=== PATIENT | female | born 1965 | race Caucasian/White ===

== ENCOUNTER 2019-10-10 06:29 | Inpatient (IN) ==
[2019-10-10] MEDS ORDERED: MORPHINE 4 MG/1 ML VIAL IV PRN (08:52)
[2019-10-10] MEDS ORDERED: ONDANSETRON 4 MG/2 ML VIAL IV PRN (08:52)
[2019-10-10] MEDS ORDERED: ACETAMINOPHEN 325 MG TABLET PO PRN (08:52)
[2019-10-10] MEDS ORDERED: LACTULOSE 20 GM/30 ML UDCUP PO PRN (08:52)
[2019-10-10] MEDS ORDERED: GLUCAGON 1 MG VIAL IM PRN (08:58)
[2019-10-10] MEDS ORDERED: DEXTROSE 10% 250 ML BAG IV PRN (08:58)
[2019-10-10] MEDS: PANTOPRAZOLE 40 MG VIAL IV SCH (09:00)
[2019-10-10] MEDS: ENOXAPARIN 40 MG/0.4 ML SYRINGE SUBCUT SCH (09:00)
[2019-10-10] MEDS: SODIUM CHLORIDE 0.45% 1,000 ML IV SCH ×2 (09:00→18:15)
[2019-10-10 09:20] LABS: ABG Base Excess -6.3 MMOL/L (-2.5-2.5); ABG HCO3 19.3 MMOL/L (20-26); ABG Oxygen Saturation 99.7 % (95-100); ABG PCO2 38.1 MM HG (35-48); ABG PH 7.315 (7.35-7.45); ABG TCO2 17.7 MMOL/L (23-27); Allen Test Positive; Pt O2 Delivery Device Ventilator
[2019-10-10 10:31] LABS: PT Patient Result 10.7 SECS (9.8-11.9)
[2019-10-10 10:33] LABS: Alanine Aminotransferase 19 U/L (13-56); Albumin 3.3 G/DL (3.4-5.0); Alkaline Phosphatase 90 U/L (45-117); Aspartate Amino Transferase 16 U/L (0-37); Bilirubin,Total < 0.39 MG/DL (0.2-1.0); Blood Urea Nitrogen 12 MG/DL (7-18); Calcium 8.9 MG/DL (8.5-10.1); Estimated Glom Filtration Rate 116 ML/MIN; Glucose 113 MG/DL (74-106); Osmolality,Calculated 273.8 MOS/KG (273-304); Total Protein 6.5 G/DL (6.4-8.3)
[2019-10-10 10:38] LABS: Ferritin 12.6 ng/ml (8-252)
[2019-10-10] MEDS ORDERED: SODIUM CHLORIDE 0.9% 1,000 ML IV ONE (10:52)
[2019-10-10] MEDS: PIPERACILLIN/TAZOBACTAM 3,375 MG in SODIUM CHLORIDE 0.9% 100 ML IV SCH ×2 (10:59→18:39)
[2019-10-10 11:01] LABS: Free T4 (Free Thyroxine) 0.79 NG/DL (0.76-1.46); Thyroid Stimulating Hormone 0.561 uIU/ml (0.358-3.74)
[2019-10-10] MEDS: INSULIN LISPRO 100 UNIT/ML SUBCUT SCH ×2 (12:47→17:40)
[2019-10-10] MEDS: MIDAZOLAM 100 MG in SODIUM CHLORIDE 0.9% 80 ML IV PRN (13:35)
[2019-10-11] MEDS: INSULIN LISPRO 100 UNIT/ML SUBCUT SCH ×4 (01:48→17:03)
[2019-10-11] MEDS: PIPERACILLIN/TAZOBACTAM 3,375 MG in SODIUM CHLORIDE 0.9% 100 ML IV SCH ×3 (02:23→22:45)
[2019-10-11] MEDS ORDERED: SODIUM CHLORIDE 0.9% 100 ML IV ONE (02:37)
[2019-10-11] MEDS ORDERED: SODIUM CHLORIDE 0.9% 250 ML IV ONE (03:00)
[2019-10-11] MEDS: MIDAZOLAM 100 MG in SODIUM CHLORIDE 0.9% 80 ML IV PRN (03:45)
[2019-10-11] MEDS: SODIUM CHLORIDE 0.45% 1,000 ML IV SCH (04:15)
[2019-10-11 04:46] LABS: Allen Test Positive; Pt O2 Delivery Device Ventilator
[2019-10-11 04:47] LABS: ABG Base Excess -1.9 MMOL/L (-2.5-2.5); ABG HCO3 22.4 MMOL/L (20-26); ABG Oxygen Saturation 67.8 % (95-100); ABG PCO2 35.6 MM HG (35-48); ABG PH 7.407 (7.35-7.45); ABG TCO2 20.5 MMOL/L (23-27)
[2019-10-11 04:48] LABS: ABG PO2 37.8 MM HG (80-95)
[2019-10-11 04:54] LABS: Basophils % 0.2 % (0.0-0.8); Eosinophils # 0.1 10*3/uL (0.0-0.87); Eosinophils % 0.7 % (0.00-10.9); Hematocrit 33.7 VOL% (35.7-47.0); Hemoglobin 10.1 GM/DL (12.0-16.0); Immature Granulocytes % 0.4 %; Immature Granulocytes Absolute 0.04 #; Lymphocytes # 2.2 10*3/uL (1.4-4.0); Lymphocytes % 21.4 % (21.3-54.2); Mean Corpuscular Volume 93.4 FL (87-102); Monocytes % 6.4 % (1.7-12.7); Neutrophils % 70.9 % (38.7-73.9); Platelet Count 366 T/CUMM (130-400); Red Blood Count 3.61 MC/CUMM (3.8-5.5); Red Cell Distribution Width 16.9 % (9.3-17.3); White Blood Count 10.1 T/CUMM (4-12)
[2019-10-11 05:16] LABS: Prealbumin 33.1 MG/DL (20-40)
[2019-10-11 05:55] LABS: ABG Base Excess -2.4 MMOL/L (-2.5-2.5); ABG HCO3 22.4 MMOL/L (20-26); ABG Oxygen Saturation 99.5 % (95-100); ABG PCO2 35.3 MM HG (35-48); ABG PH 7.399 (7.35-7.45); ABG TCO2 19.7 MMOL/L (23-27)
[2019-10-11] MEDS ORDERED: POTASSIUM CHLORIDE RIDER 10 MEQ in PREMIX 1 EACH IV PRN (07:04)
[2019-10-11] MEDS ORDERED: MAGNESIUM SULF RIDER 4 GM in PREMIX 1 EACH IV PRN (07:04)
[2019-10-11] MEDS ORDERED: POTASSIUM CHLORIDE RIDER 20 MEQ in PREMIX 1 EACH IV PRN (07:04)
[2019-10-11] MEDS ORDERED: MAGNESIUM SULF RIDER 2 GM in PREMIX 1 EACH IV PRN (07:04)
[2019-10-11] MEDS: SODIUM CHLORIDE 0.9% 1,000 ML IV SCH ×3 (07:32→21:52)
[2019-10-11 09:05] LABS: Calcium 8.7 MG/DL (8.5-10.1); Osmolality,Calculated 286.8 MOS/KG (273-304)
[2019-10-11] MEDS: ENOXAPARIN 40 MG/0.4 ML SYRINGE SUBCUT SCH (09:55)
[2019-10-11] MEDS: PANTOPRAZOLE 40 MG VIAL IV SCH (09:55)
[2019-10-11] MEDS ORDERED: FLUTICASONE/SALMETEROL 500-50 DISKUS 14 DOSE INH PRN (13:04)
[2019-10-11] MEDS ORDERED: LORazepam 2 MG/1 ML VIAL IV PRN (13:06)
[2019-10-11] MEDS: BACLOFEN 10 MG TABLET PO SCH ×2 (16:30→23:36)
[2019-10-11] MEDS: ARIPiprazole 10 MG TABLET PO SCH (16:30)
[2019-10-11] MEDS: GABAPENTIN 300 MG CAPSULE PO SCH (23:35)
[2019-10-12] MEDS: INSULIN LISPRO 100 UNIT/ML SUBCUT SCH ×5 (02:08→23:28)
[2019-10-12] MEDS: SODIUM CHLORIDE 0.9% 1,000 ML IV SCH (03:17)
[2019-10-12] MEDS: PIPERACILLIN/TAZOBACTAM 3,375 MG in SODIUM CHLORIDE 0.9% 100 ML IV SCH (03:39)
[2019-10-12 06:37] LABS: Basophils # 0.1 10*3/uL (0.0-0.2); Basophils % 0.4 % (0.0-0.8); Eosinophils # 0.4 10*3/uL (0.0-0.87); Eosinophils % 3.3 % (0.00-10.9); Hematocrit 34.5 VOL% (35.7-47.0); Hemoglobin 10.7 GM/DL (12.0-16.0); Immature Granulocytes % 0.3 %; Immature Granulocytes Absolute 0.03 #; Lymphocytes # 3.1 10*3/uL (1.4-4.0); Mean Corpuscular Volume 89.6 FL (87-102); Mean Platelet Volume 9.3 FL (9.6-12.0); Monocytes % 4.7 % (1.7-12.7); Neutrophils % 64.3 % (38.7-73.9); Platelet Count 402 T/CUMM (130-400); Red Blood Count 3.85 MC/CUMM (3.8-5.5); Red Cell Distribution Width 16.3 % (9.3-17.3); White Blood Count 11.6 T/CUMM (4-12)
[2019-10-12 07:06] LABS: Calcium 8.7 MG/DL (8.5-10.1); Osmolality,Calculated 277.3 MOS/KG (273-304)
[2019-10-12] MEDS: ENOXAPARIN 40 MG/0.4 ML SYRINGE SUBCUT SCH (08:50)
[2019-10-12] MEDS: LORATADINE 10 MG TABLET PO SCH (08:50)
[2019-10-12] MEDS: ARIPiprazole 10 MG TABLET PO SCH (08:50)
[2019-10-12] MEDS: BACLOFEN 10 MG TABLET PO SCH ×3 (08:50→20:57)
[2019-10-12] MEDS ORDERED: PANTOPRAZOLE 40 MG TABLET PO SCH (09:00)
[2019-10-12] MEDS: amLODIPine 5 MG TABLET PO SCH (11:50)
[2019-10-12] MEDS: NICOTINE 21 MG/24 HR PATCH TRANSDERM SCH (17:26)
[2019-10-12] MEDS: GABAPENTIN 300 MG CAPSULE PO SCH (20:56)
[2019-10-12] MEDS: BENZTROPINE 0.5 MG TABLET PO SCH (20:57)
[2019-10-12] MEDS: DIVALPROEX 500 MG TABLET PO SCH (20:57)
[2019-10-12] MEDS: PANTOPRAZOLE 40 MG TABLET PO SCH (20:57)
[2019-10-12] MEDS: busPIRone 15 MG TABLET PO SCH (20:57)
[2019-10-13] MEDS ORDERED: DEXTROSE 10% 250 ML BAG IV PRN (07:29)
[2019-10-13] MEDS ORDERED: GLUCAGON 1 MG VIAL IM PRN (07:29)
[2019-10-13 07:41] LABS: Basophils # 0.1 10*3/uL (0.0-0.2); Basophils % 0.5 % (0.0-0.8); Eosinophils # 0.5 10*3/uL (0.0-0.87); Eosinophils % 4.5 % (0.00-10.9); Hematocrit 33.3 VOL% (35.7-47.0); Hemoglobin 10.3 GM/DL (12.0-16.0); Immature Granulocytes % 0.4 %; Immature Granulocytes Absolute 0.04 #; Lymphocytes # 2.9 10*3/uL (1.4-4.0); Lymphocytes % 27.7 % (21.3-54.2); Mean Corpuscular HGB Conc 30.9 GM/DL (32-36); Mean Corpuscular Volume 90.2 FL (87-102); Mean Platelet Volume 9.3 FL (9.6-12.0); Monocytes % 4.4 % (1.7-12.7); Neutrophils % 62.5 % (38.7-73.9); Platelet Count 418 T/CUMM (130-400); Red Blood Count 3.69 MC/CUMM (3.8-5.5); Red Cell Distribution Width 15.9 % (9.3-17.3); White Blood Count 10.4 T/CUMM (4-12)
[2019-10-13 08:35] LABS: Calcium 8.9 MG/DL (8.5-10.1); Osmolality,Calculated 279.1 MOS/KG (273-304)
[2019-10-13] MEDS ORDERED: SERTRALINE 100 MG TABLET PO SCH (09:00)
[2019-10-13] MEDS ORDERED: ATORVASTATIN 20 MG TABLET PO SCH (09:00)
[2019-10-13] MEDS: NICOTINE 21 MG/24 HR PATCH TRANSDERM SCH (09:01)
[2019-10-13] MEDS: busPIRone 15 MG TABLET PO SCH (09:01)
[2019-10-13] MEDS: DIVALPROEX 500 MG TABLET PO SCH (09:02)
[2019-10-13] MEDS: PANTOPRAZOLE 40 MG TABLET PO SCH (09:03)
[2019-10-13] MEDS: amLODIPine 5 MG TABLET PO SCH (09:03)
[2019-10-13] MEDS: BACLOFEN 10 MG TABLET PO SCH (09:03)
[2019-10-13] MEDS: ARIPiprazole 10 MG TABLET PO SCH (09:03)
[2019-10-13] MEDS: LORATADINE 10 MG TABLET PO SCH (09:04)
[2019-10-13] MEDS: BENZTROPINE 0.5 MG TABLET PO SCH (09:04)
[2019-10-13] MEDS: INSULIN LISPRO 100 UNIT/ML SUBCUT SCH ×2 (09:05→13:52)
[2019-10-13] MEDS: ENOXAPARIN 40 MG/0.4 ML SYRINGE SUBCUT SCH (09:10)
[2019-10-13] MEDS ORDERED: POTASSIUM CHLORIDE 20 MEQ TABLET PO ONE ×2 (11:38→13:30)
[2019-10-13 12:35] VITALS: BP 141/91
== END 2019-10-13 15:08 | disposition home or self-care (01) | DRG 917 ==
LOC: SUATTDRO 08:48 → N.ICU 08:48 → SUPCPDRO 08:48 → N.TELEN 10-12 16:35
PROVIDERS: ADMIT Internal Medicine; ATTEND Internal Medicine